=== PATIENT | female | born 1995 | race African-American/Black ===

== ENCOUNTER 2017-04-01 14:06 | Emergency (ER) | payer MEDICAID, OTHER ==
[~2017-04-01] VITALS: Ht 162.6 cm; Wt 91.0 kg
[2017-04-01 14:34] VITALS: BP 131/60; PULSE 113; RESP 16; TEMP 99.2
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
[2017-04-01] MEDS ORDERED: IBUP800T23 PO (14:53)
[2017-04-01] MEDS ORDERED: AUGM875T3 PO (14:53)
[2017-04-01] MEDS ORDERED: IBUPROFEN 800 MG TAB PO ONE (15:00)
[2017-04-01] MEDS ORDERED: LIDOCAINE HCL 1% 50 ML VIAL INFIL ONE (15:00)
== END 2017-04-01 15:41 | disposition home or self-care (01) ==
LOC: NEPD 14:06
DX: S91.311A Laceration without foreign body, right foot, initial encounter (principal); Y04.1XXA Assault by human bite, initial encounter; Z79.899 Other long term (current) drug therapy
CPT/HCPCS: 12001